=== PATIENT | female | born 1955 | race Caucasian/White ===

== ENCOUNTER → 2019-04-23 09:07 | Outpatient (CLI) | payer OTHER, SELFPAY ==
[2019-04-23 10:29] LABS: Alanine Aminotransferase 30 IU/L (<35); Albumin 4.1 g/dL (3.5-5.0); Albumin Globulin Ratio 1.3 (1.0-2.8); Alkaline Phosphatase 80 U/L (38-126); Aspartate Aminotransferase 28 IU/L (14-36); BUN Creatinine Ratio 38.6 (6-22); Bilirubin Total 0.9 mg/dL (0.2-1.3); Blood Urea Nitrogen 27 mg/dL (7-17); Calcium 9.5 mg/dL (8.4-10.2); Carbon Dioxide 33 mmol/L (22-32); Chloride 98 mmol/L (98-107); Cholesterol 146 mg/dL (140-199); Estimated Glomerular Filt Rate > 60.0 mL/min (>60); Globulin 3.1 g/dL (1.7-4.1); Glucose 102 mg/dL (80-110); HDL Cholesterol 40 mg/dL (40-60); HEMOLYSIS < 15 (0-50); LDL Cholesterol Calculated 93 mg/dL (<100); Potassium 3.6 mmol/L (3.4-5.1); Sodium 139 mmol/L (137-145); Total Protein 7.2 g/dL (6.3-8.2); Triglycerides 63 mg/dL (35-150)
[2019-04-23 11:10] LABS: Hemoglobin A1C% w Est Avg Glu 5.6 % (4.0-6.0)
[2019-04-23 11:13] LABS: Creatinine Urine Random 109.7 mg/dL
[2019-04-23 11:17] LABS: Microalbumi Creatinin Ratio Ur 7.2 ug/mg CR (<30); Microalbumin Urine Random 0.8 mg/dL (0-1.6)
== END ==
PROVIDERS: PCP Family Medicine; Visit Provider Family Medicine
DX: E78.5 Hyperlipidemia, unspecified (principal); I10 Essential (primary) hypertension
CPT/HCPCS: 36415; 80053; 80061; 82043; 82570; 83036

== ENCOUNTER → 2019-12-26 08:52 | Outpatient (CLI) | payer MEDICARE, SELFPAY ==
[2019-12-26 09:50] LABS: Cholesterol 154 mg/dL (140-199); HDL Cholesterol 65 mg/dL (40-60); LDL Cholesterol Calculated 77 mg/dL (<100); Triglycerides 60 mg/dL (35-150)
== END ==
PROVIDERS: PCP Family Medicine; Referring Provider Family Medicine; Visit Provider Family Medicine
DX: E78.5 Hyperlipidemia, unspecified (principal)
CPT/HCPCS: 36415; 80061

== ENCOUNTER → 2020-05-26 10:56 | Outpatient (CLI) | payer MEDICARE, SELFPAY ==
[2020-05-26 12:07] LABS: Add Manual Diff / Slide Review NO; Basophils Absolute Auto 100 /uL (0-100); Basophils Percent Auto 1.1 % (0-2); Eosinophils Absolute Auto 200 /uL (0-450); Eosinophils Percent Auto 2.3 % (2-4); Hematocrit 42.8 % (36-46); Hemoglobin 14.5 g/dL (12.0-16.0); Lymphocytes Absolute Auto 1700 /uL (1100-4500); Lymphocytes Percent Auto 25.6 % (25-40); Mean Corpuscular HGB Conc 33.7 % (30-36); Mean Corpuscular Hemoglobin 29.4 PG (26-34); Mean Corpuscular Volume 87.1 fL (80-100); Monocytes Absolute Auto 600 /uL (0-900); Monocytes Percent Auto 9.3 % (3-14); Neutrophils Absolute Auto 4100 /uL (1500-7000); Neutrophils Percent Auto 61.7 % (50-75); Platelet Count 224 X10^3/uL (150-400); Red Blood Cell Count 4.92 X10^6/uL (4.0-5.2); Red Cell Distribution Width 13.4 % (11.6-14.8); White Blood Cell Count 6.6 X10^3/uL (4.5-11.0)
[2020-05-26 12:23] LABS: Alanine Aminotransferase 24 IU/L (<35); Albumin 4.2 g/dL (3.5-5.0); Albumin Globulin Ratio 1.3 (1.0-2.8); Alkaline Phosphatase 86 U/L (38-126); Aspartate Aminotransferase 27 IU/L (14-36); BUN Creatinine Ratio 36.8 (6-22); Bilirubin Total 0.7 mg/dL (0.2-1.3); Blood Urea Nitrogen 25 mg/dL (7-17); Calcium 9.4 mg/dL (8.4-10.2); Carbon Dioxide 33 mmol/L (22-32); Chloride 100 mmol/L (98-107); Estimated Glomerular Filt Rate > 60.0 mL/min (>60); Globulin 3.2 g/dL (1.7-4.1); Glucose 110 mg/dL (80-110); HEMOLYSIS < 15 (0-50); Potassium 3.6 mmol/L (3.4-5.1); Sodium 137 mmol/L (137-145); Total Protein 7.4 g/dL (6.3-8.2)
[2020-05-26 12:49] LABS: Free T3, Triiodothyronine Free 4.37 pg/mL (2.77-5.27)
[2020-05-26 12:58] LABS: Creatinine Urine Random 76.6 mg/dL
[2020-05-26 13:02] LABS: Microalbumin Urine Random < 0.6 mg/dL (0-1.6)
[2020-05-26 13:03] LABS: Thyroid Stimulating Hormone 0.896 uIU/mL (0.47-4.68)
== END ==
PROVIDERS: PCP Family Medicine; Referring Provider Family Medicine; Visit Provider Family Medicine
DX: I48.91 Unspecified atrial fibrillation (principal); I10 Essential (primary) hypertension
CPT/HCPCS: 36415; 80053; 82043; 82570; 84439; 84443; 84481; 85025

== ENCOUNTER → 2022-08-05 10:42 | Outpatient (CLI) | payer MEDICARE, SELFPAY ==
--- NOTE | 2022-08-05 10:44 | DI.US.S_ITS ---
PROCEDURE: US THYROID INDICATIONS: thyroid nodule f/u TECHNIQUE: Real-time scanning was performed of the thyroid gland, with image documentation. COMPARISON: None. FINDINGS: Right: Thyroid lobe measures 5.9 x 1.8 x 1.7 cm, and is homogeneous in echotexture. Left: Thyroid lobe measures 6.0 x 2.5 x 1.9 cm, and is homogenous in echotexture. Isthmus: 4.7 mm thick. Four largest nodules as follows: Nodule number: 1 Location: Right mid Size: 0.9 x 1.0 x 0.6 cm. Composition: Solid Echogenicity: Hypoechoic Shape: wider than tall. Margins: Irregular Echogenic foci: Punctate Total points: 9 ACR TI-RADS category: 5 Nodule number: 2 Location: Left mid/anterior Size: 2.3 x 1.6 x 1.0 Composition: Predominantly solid Echogenicity: Hypoechoic Shape: wider than tall. Margins: Smooth Echogenic foci: Non Total points: 4 ACR TI-RADS category: 4 Nodule number: 3 Location: Left inferior Size: 1.6 x 1.3 x 1.3 cm. Composition: Solid Echogenicity: Hypoechoic Shape: wider than tall. Margins: Smooth Echogenic foci: None Total points: 4 ACR TI-RADS category: 4 Nodule number: 4 Location: Left mid/posterior Size: 1.3 x 0.7 x 0.6 cm. Composition: Predominantly solid Echogenicity: Hypoechoic Shape: wider than tall. Margins: Smooth Echogenic foci: Non Total points: 4 ACR TI-RADS category: 4 IMPRESSION: Stable multiple thyroid nodules. Best practice guidelines suggest FNA of nodule 1, 2, and 3 if not previously accomplished. Follow-up schedule is as below ACR TI-RADS definitions and recommendations: TI-RADS 1 (benign): 0 points. FNA not needed. TI-RADS 2 (not suspicious): 2 points. FNA not needed. TI-RADS 3 (mildly suspicious): 3 points. * FNA if 2.5 cm or larger, follow up if 1.5 cm or larger (at 1, 3, and 5 years). TI-RADS 4 (moderately suspicious): 4-6 points. * FNA if 1.5 cm or larger, follow up if 1 cm or larger (at 1, 2, 3, and 5 years). TI-RADS 5 (highly suspicious): 7 points or more. * FNA if 1 cm or larger, follow up if 0.5 cm or larger (every year for 5 years). Approved by: Jack Sun M.D. on 08/05/2022 at 17:00
[2022-08-05 12:46] LABS: Alanine Aminotransferase 31 IU/L (<35); Albumin 4.1 g/dL (3.5-5.0); Albumin Globulin Ratio 1.4 (1.0-2.8); Alkaline Phosphatase 92 U/L (38-126); Aspartate Aminotransferase 27 IU/L (14-36); BUN Creatinine Ratio 20.9 (6-22); Bilirubin Total 1.1 mg/dL (0.2-1.3); Blood Urea Nitrogen 18 mg/dL (7-17); Calcium 9.3 mg/dL (8.4-10.2); Carbon Dioxide 30 mmol/L (22-32); Chloride 100 mmol/L (98-107); Cholesterol 191 mg/dL (140-199); Estimated Glomerular Filt Rate > 60 mL/min (>60); Glucose 97 mg/dL (80-110); HEMOLYSIS < 15 (0-50); Potassium 3.9 mmol/L (3.4-5.1); Sodium 138 mmol/L (137-145); Total Protein 7.1 g/dL (6.3-8.2); Triglycerides 137 mg/dL (35-150)
[2022-08-05 12:52] LABS: HDL Cholesterol 58 mg/dL (40-60); LDL Cholesterol Calculated 106 mg/dL (<100)
[2022-08-05 15:09] LABS: Creatinine Urine Random 139.6 mg/dL
[2022-08-05 15:10] LABS: Microalbumin Urine Random 16.2 mg/dL (0-1.6)
[2022-08-05 21:46] LABS: Free T4, Direct Thyroxine 2.06 ng/dL (0.78-2.19)
[2022-08-06 05:14] LABS: Labcorp Hemoglobin (Hb) A1c 6.1 % (4.8-5.6)
[2022-08-06 16:57] LABS: Fecal Immunochemical Test Negative (Negative)
[2022-08-11 13:31] LABS: Appearance Urine UA CLEAR; Bilirubin Urine UA NEGATIVE (NEGATIVE); Color Urine UA YELLOW; Glucose Urine UA NEGATIVE (Negative); Ketones Urine UA NEGATIVE (NEGATIVE); Leukocyte Esterase Urine UA TRACE (NEGATIVE); Nitrite Urine UA NEGATIVE (Negative); Occult Blood Urine UA NEGATIVE (Negative); Protein Urine UA NEGATIVE (Negative); Specific Gravity Urine UA 1.015 (1.000-1.035); Urobilinogen Urine UA 0.2 E.U./dL (0.2)
[2022-08-11 14:08] LABS: pH Urine UA 6.5 (4.5-8.0)
[2022-08-11 14:09] LABS: Bacteria Urine None Seen; Culture Indicated Urine Specimen Cultured; RBC Urine None Seen (0-5/HPF); Squamous Epithelial Cell Urine None Seen (0-5/HPF); WBC Urine None Seen (0-5/HPF)
== END ==
PROVIDERS: Physician Assistant; PCP Family Medicine; Referring Provider Family Medicine; Visit Provider Family Medicine
DX: I10 Essential (primary) hypertension; E04.2 Nontoxic multinodular goiter; Z12.11 Encounter for screening for malignant neoplasm of colon; R73.03 Prediabetes
CPT/HCPCS: 36415; 76536; 80053; 80061; 81001; 82043; 82274; 82570; 83036; 84439; 84443; 87086

== ENCOUNTER → 2022-08-23 06:39 | Outpatient (CLI) | payer MEDICARE, SELFPAY ==
--- NOTE | 2022-08-23 06:41 | DI.US.S_ITS ---
PROCEDURE: US ABDOMEN COMPLETE INDICATIONS: LOWER ABDOMINAL PAIN/PRESSURE RADIATES TO LOW BACK TECHNIQUE: Real-time scanning was performed of the abdominal and retroperitoneal organs, with image documentation. COMPARISON: None. FINDINGS: Liver: Liver is normal in size and homogeneous in echotexture. Gallbladder: Unremarkable Biliary ducts: Intrahepatic bile ducts are non-dilated. Extrahepatic bile duct caliber measures 4.3 mm. Normal is 6-7 mm or less in diameter, or 10 mm or less post-cholecystectomy. Pancreas: Not visualized due to overlying bowel gas. Spleen: Spleen is normal in size and homogeneous in echotexture. Kidneys: Kidneys are normal in size and echotexture. Right kidney measures 12.4 cm long; left kidney measures 11.3 cm long. Mild left-sided pelvocaliectasis. Left-sided stone measuring 1.3 cm. Aorta: Visualized aorta is normal in caliber at less than 3 cm. Iliacs: Proximal common iliac arteries are normal in caliber at less than 2.5 cm. IVC: Intrahepatic inferior vena cava is patent. Miscellaneous: No free abdominal fluid. IMPRESSION: Mild left-sided pelvocaliectasis/hydronephrosis, with a nonobstructing left-sided 1.3 cm stone present. Distal obstructing stone not entirely excluded based on this appearance. Consider CT. Dictated by: Tutu Arechiga M.D. on 08/23/2022 at 8:10 Approved by: Tutu Arechiga M.D. on 08/23/2022 at 8:12
--- NOTE | 2022-08-23 06:41 | DI.US.S_ITS ---
PROCEDURE: US PELVIC COMPLETE INDICATIONS: LOWER ABDOMINAL PAIN/PRESSURE RADIATES TO LOWER BACK TECHNIQUE: Real-time scanning was performed of the pelvic organs, with image documentation. Additional endovaginal scanning was necessary due to incomplete visualization of the adnexal and endometrial structures by transabdominal scanning. COMPARISON: None. FINDINGS: Uterus: Uterus is retroverted and normal in size at 4.9 x 2.7 x .3 cm. The myometrium is homogeneous. The endometrium measures 7 mm combined thickness. Ovaries: Ovaries not visualized due to overlying bowel gas. Other: No pathologic free abdominal or pelvic fluid. IMPRESSION: Mildly heterogeneous uterus without discrete mass. Endometrial stripe measures 7 mm. This is within normal limits in a postmenopausal female without bleeding, but would be abnormal in the setting of a postmenopausal female with bleeding. We strive to produce accurate, complete, and clear reports of imaging services. To assist us in improving patient care, this report was composed using standard report templates and voice recognition software. Therefore, it may contain abnormal punctuation, insertions and/or omissions. Occasional wrong-word or sound-alike substitutions may occur. Though we review the report and make efforts to correct it, we do recommend that the report be read carefully in proper context to recognize any text inaccuracies. Dictated by: Tutu Arechiga M.D. on 08/23/2022 at 8:03 Approved by: Tutu Arechiga M.D. on 08/23/2022 at 8:06
== END ==
PROVIDERS: PCP Family Medicine; Referring Provider Physician Assistant; Visit Provider Physician Assistant
DX: R10.30 Lower abdominal pain, unspecified (principal)
CPT/HCPCS: 76700; 76830; 76856

== ENCOUNTER → 2022-08-27 09:53 | Outpatient (CLI) | payer MEDICARE, SELFPAY ==
--- NOTE | 2022-08-27 09:54 | DI.CT.S_ITS ---
PROCEDURE: CT KIDNEY URETER BLADDER (KUB) INDICATIONS: Left side renal stone seen on US TECHNIQUE: Axial sections were acquired from the lung bases to the pubic symphysis. Coronal and sagittal reformats were performed. For radiation dose reduction, the following was used: automated exposure control, adjustment of mA and/or kV according to patient size. COMPARISON: [facility], US, US ABDOMEN COMPLETE, 08/23/2022, 7:15. FINDINGS: Lung bases: No pleural effusion. URINARY: Non-obstructing stones are present within both kidneys. Stone burden is greater in the left kidney than the right, approximately 1-2 right-sided stones, and at least 4 left-sided stones. Right-sided stones are small in the region of 2-4 millimeters, largest left-sided stone measures 8-9 millimeters, internal density 686 Hounsfield units. No hydroureteronephrosis or ureteral stone bilaterally. Small cortical cyst left kidney. No bladder stones visualized. ABDOMEN: Liver: Unremarkable. Gallbladder: Unremarkable. Biliary ducts: Unremarkable. Pancreas: Unremarkable. Spleen: Unremarkable. Adrenal Glands: Unremarkable. Stomach and Bowel: No bowel obstruction. Small hiatal hernia. Peritoneum: No abnormal intraperitoneal fluid. No free air. Abdominal Nodes: No enlarged retroperitoneal or mesenteric lymph nodes. Vessels: Aorta and inferior vena cava are normal in size. PELVIS: Pelvic Organs: Unremarkable. Pelvic Nodes: Unremarkable. Bones: Multilevel degenerative change of the visualized spine. IMPRESSION: 1. Nonobstructing renal stones present bilaterally. No hydroureteronephrosis or ureteral stone demonstrated. 2. Small hiatal hernia. Dictated by: Kevin Adams M.D. on 08/27/2022 at 12:50 Approved by: Kevin Adams M.D. on 08/27/2022 at 13:05
== END ==
PROVIDERS: PCP Family Medicine; Referring Provider Physician Assistant; Visit Provider Physician Assistant
DX: N20.0 Calculus of kidney (principal); K44.9 Diaphragmatic hernia without obstruction or gangrene
CPT/HCPCS: 74176

== ENCOUNTER → 2022-11-19 09:37 | Outpatient (CLI) | payer MEDICARE, SELFPAY ==
[2022-11-19 10:32] LABS: Hemoglobin A1C% w Est Avg Glu 5.8 % (4.0-6.0)
[2022-11-19 11:07] LABS: TSH w/ Reflex to FT4 0.02 uIU/mL (0.47-4.68)
[2022-11-19 11:32] LABS: Free T4, Direct Thyroxine 1.81 ng/dL (0.78-2.19)
== END ==
PROVIDERS: PCP Family Medicine; Referring Provider Physician Assistant; Visit Provider Physician Assistant
DX: R73.03 Prediabetes (principal); R79.89 Other specified abnormal findings of blood chemistry
CPT/HCPCS: 36415; 83036; 84439; 84443

== ENCOUNTER → 2022-11-30 11:37 | Outpatient (CLI) | payer MEDICARE, SELFPAY ==
[2022-11-30 13:30] LABS: TSH w/ Reflex to FT4 0.98 uIU/mL (0.47-4.68)
== END ==
PROVIDERS: PCP Family Medicine; Referring Provider Family Medicine; Visit Provider Family Medicine
DX: E04.1 Nontoxic single thyroid nodule (principal); R79.89 Other specified abnormal findings of blood chemistry
CPT/HCPCS: 36415; 84443

== ENCOUNTER → 2023-02-07 15:28 | Outpatient (CLI) | payer MEDICARE, SELFPAY | PROVIDERS: PCP Family Medicine; Visit Provider Nurse Practitioner Family | DX: R30.0 Dysuria (principal) | CPT/HCPCS: 87077; 87086; 87186 ==

== ENCOUNTER → 2023-07-08 09:18 | Outpatient (CLI) | payer MEDICARE, SELFPAY ==
[2023-07-08 10:21] LABS: Hemoglobin A1C% w Est Avg Glu 6.1 % (4.0-6.0)
[2023-07-08 10:36] LABS: Alanine Aminotransferase 22 IU/L (<35); Albumin 3.9 g/dL (3.5-5.0); Albumin Globulin Ratio 1.3 (1.0-2.8); Alkaline Phosphatase 90 U/L (38-126); Aspartate Aminotransferase 23 IU/L (14-36); BUN Creatinine Ratio 23.3 (6-22); Bilirubin Total 0.8 mg/dL (0.2-1.3); Blood Urea Nitrogen 17 mg/dL (7-17); Calcium 9.2 mg/dL (8.4-10.2); Carbon Dioxide 33 mmol/L (22-32); Chloride 102 mmol/L (98-107); Cholesterol 179 mg/dL (140-199); Estimated Glomerular Filt Rate > 60 mL/min (>60); Glucose 108 mg/dL (80-110); HDL Cholesterol 53 mg/dL (40-60); HEMOLYSIS < 15 (0-50); LDL Cholesterol Calculated 101 mg/dL (<100); Potassium 3.9 mmol/L (3.4-5.1); Sodium 137 mmol/L (137-145); Total Protein 6.9 g/dL (6.3-8.2); Triglycerides 126 mg/dL (35-150)
[2023-07-08 11:14] LABS: Microalbumin Urine Random 9.5 mg/dL (0-1.6)
== END ==
PROVIDERS: PCP Family Medicine; Referring Provider Family Medicine; Visit Provider Family Medicine
DX: R73.03 Prediabetes (principal); I10 Essential (primary) hypertension
CPT/HCPCS: 36415; 80053; 80061; 82043; 82570; 83036

== ENCOUNTER → 2023-07-28 10:13 | Outpatient (CLI) | payer MEDICARE, SELFPAY ==
--- NOTE | 2023-07-28 10:14 | DI.US.S_ITS ---
PROCEDURE: US THYROID INDICATIONS: FOLLOW-UP NODULES TECHNIQUE: Real-time scanning was performed of the thyroid gland, with image documentation. COMPARISON: [facility], US, US THYROID, 08/05/2022, 11:33. FINDINGS: Thyroid: Right lobe measures 6 x 1.5 x 1.6 cm. Left lobe measures 5.3 x 2.2 x 2.1 cm. Isthmus is 0.4 cm thick. Echotexture is homogeneous. Nodule number: 1 Location: Right mid Size: 1 x 0.6 x 1 cm, previously 0.9 x 1 x 0.6 cm. Composition: Solid Echogenicity: Isoechoic Shape: wider than tall. Margins: Ill-defined Echogenic foci: Punctate Total points: 9 ACR TI-RADS category: 5 Nodule number: 2 Location: Right superior Size: 0.7 x 0.4 x 0.5 cm, previously 0.5 x 0.6 x 0.4 cm. Composition: Predominately solid Echogenicity: Hypoechoic Shape: wider than tall. Margins: Smooth Echogenic foci: None Total points: 4 ACR TI-RADS category: 4 Nodule number: 3 (previously nodule 2) Location: Left mid/anterior Size: 2.2 x 1.5 x 1.7 5 cm, previously 2.3 x 1.6 x 1 cm. Composition: Solid Echogenicity: Hypoechoic Shape: wider than tall. Margins: Smooth Echogenic foci: None Total points: 4 ACR TI-RADS category: 4 Nodule number: 4 (previously nodule 3) Location: Left inferior Size: 1.5 x 1.2 x 1.5 cm, previously 1.6 x 1.3 x 1.3 cm. Composition: Solid Echogenicity: Isoechoic Shape: wider than tall. Margins: Smooth Echogenic foci: None Total points: 4 ACR TI-RADS category: 4 Nodule number: 5 (previously nodule 4) Location: Left mid posterior Size: 1.4 x 0.5 x 0.5 cm, previously 1.3 x 0.7 x 0.6 cm. Composition: Solid Echogenicity: Hypoechoic Shape: wider than tall. Margins: Smooth Echogenic foci: None Total points: 4 ACR TI-RADS category: 4 IMPRESSION: Multiple thyroid nodules are relatively stable in size and appearance. Recommend FNA of nodule 1 and 4 if this has not done so previously. Otherwise, recommend continued surveillance per guidelines below. Please note that nodule 2 was not described in the previous report from August 10, 2022 and has resulted in the change in the numbering. ACR TI-RADS definitions and recommendations: TI-RADS 1 (benign): 0 points. FNA not needed. TI-RADS 2 (not suspicious): 2 points. FNA not needed. TI-RADS 3 (mildly suspicious): 3 points. * FNA if 2.5 cm or larger, follow up if 1.5 cm or larger (at 1, 3, and 5 years). TI-RADS 4 (moderately suspicious): 4-6 points. * FNA if 1.5 cm or larger, follow up if 1 cm or larger (at 1, 2, 3, and 5 years). TI-RADS 5 (highly suspicious): 7 points or more. * FNA if 1 cm or larger, follow up if 0.5 cm or larger (every year for 5 years). Dictated by: Anthony Garcia M.D. on 07/28/2023 at 16:34 Approved by: Anthony Garcia M.D. on 07/28/2023 at 16:45
== END ==
PROVIDERS: PCP Family Medicine; Referring Provider Family Medicine; Visit Provider Family Medicine
DX: E04.2 Nontoxic multinodular goiter (principal)
CPT/HCPCS: 76536

== ENCOUNTER → 2023-08-13 09:50 | Outpatient (CLI) | payer MEDICARE, SELFPAY ==
[2023-08-13 12:45] LABS: Free T3, Triiodothyronine Free 3.67 pg/mL (2.77-5.27); Free T4, Direct Thyroxine 1.46 ng/dL (0.78-2.19)
[2023-08-13 13:00] LABS: Thyroid Stimulating Hormone 0.967 uIU/mL (0.47-4.68)
[2023-08-15 16:38] LABS: Hep C Virus Ab w/Reflex Quant NEGATIVE s/c (NEGATIVE)
== END ==
PROVIDERS: PCP Family Medicine; Referring Provider Family Medicine; Visit Provider Family Medicine
DX: E04.1 Nontoxic single thyroid nodule (principal); Z13.9 Encounter for screening, unspecified
CPT/HCPCS: 36415; 84439; 84443; 84481; 86803

== ENCOUNTER → 2023-08-16 10:55 | Outpatient (CLI) | payer MEDICARE, SELFPAY ==
[2023-08-16 11:33] LABS: Add Manual Diff / Slide Review NO; Basophils Absolute Auto 100 /uL (0-100); Basophils Percent Auto 1.1 % (0-2); Eosinophils Absolute Auto 100 /uL (0-450); Hematocrit 42.5 % (36-46); Hemoglobin 14.1 g/dL (12.0-16.0); Lymphocytes Absolute Auto 2100 /uL (1100-4500); Lymphocytes Percent Auto 29.8 % (25-40); Mean Corpuscular HGB Conc 33.2 % (30-36); Mean Corpuscular Hemoglobin 28.7 PG (26-34); Mean Corpuscular Volume 86.4 fL (80-100); Monocytes Absolute Auto 700 /uL (0-900); Neutrophils Absolute Auto 4100 /uL (1500-7000); Neutrophils Percent Auto 57.1 % (50-75); Platelet Count 259 X10^3/uL (150-400); Red Blood Cell Count 4.92 X10^6/uL (4.0-5.2); Red Cell Distribution Width 13.7 % (11.6-14.8); White Blood Cell Count 7.2 X10^3/uL (4.5-11.0)
[2023-08-16 11:44] LABS: HEMOLYSIS < 15 (0-50); Iron 110 ug/dL (37-170)
[2023-08-16 11:54] LABS: Percent Iron Saturation 30 % (15-50); Total Iron Binding Capacity 368 ug/dL (265-497); Transferrin 284 mg/dL (206-381)
== END ==
PROVIDERS: PCP Family Medicine; Referring Provider Family Medicine; Visit Provider Family Medicine
DX: R53.83 Other fatigue (principal)
CPT/HCPCS: 36415; 83540; 83550; 85025

== ENCOUNTER 2023-09-23 08:59 | Day surgery (SDC) | payer MEDICARE, SELFPAY ==
--- NOTE | 2023-09-23 | PATH_ITS ---
[facility] Accession Number: [id number] No. of containers..01 Tissue . 01 Material submitted: . colon - DESCENDING COLON POLYP . 01 Diagnosis: DESCENDING COLON POLYP: Tubular adenoma. MRV 09/28/2023 1450 Local . 01 Electronically signed: . Eran Wright MD, PhD, Pathologist NPI- [id number] . 01 Gross description: . Received in formalin with two patient identifiers and descending colon polyps, are two stephens soft tissue fragments, 1.3 to 1.6 cm in greatest dimension. Submitted in A1. ([id number]) /MRV 09/26/2023 1849 Local . 01 Pathologist provided ICD-10: D12.4 . 01 CPT . 852956 Specimen Comment: A courtesy copy of this report has been sent to [phone] Performed at: [address] [id number] MD Ameya Harris MD Phone: [phone]
[2023-09-23 09:40] VITALS: BP 143/85; PULSE 107; RESP 16; TEMP 35.9; O2SAT 95
[2023-09-23] MEDS: LACTATED RINGERS 1,000 ML 42 ML IV (09:53)
--- NOTE | 2023-09-23 10:25 | PM.HP.1 ---
History of Present Illness History of Present Illness Date Patient Seen: 09/23/23 Time Patient Seen: 10:25 Chief complaint: SDC Narrative: Last scope was 11years ago. Since then she has had a negative Cologard test. Here for screening, no symptoms. 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 Obesity (BMI 30-39.9) Anxiety Atrial fibrillation Insomnia, unspecified (~2012) Snoring (~2012) DARIEL (obstructive sleep apnea) (~2017) Cataract Hypertension (2008) Kidney stones (2013) Chicken pox Acne Rosacea Osteopenia Wrist fracture, right (1999) Genital warts Surgical History S/P ablation of atrial fibrillation (~11/18/20) Anesthesia History of colonoscopy (05/15/10) History of open reduction and internal fixation (ORIF) procedure (1999) History of ovarian cystectomy (1985) History of cataract removal with insertion of prosthetic lens (11/2015) Status post delivery History of lithotripsy (2013) History of tonsillectomy (~1974) Family History Brother Age: 66 Hypertension High cholesterol Gout Herpes simplex of eye Father Prostate cancer Heart disease Hypertension High cholesterol Stroke Grandfather Heart disease Hypertension Heart attack Grandmother Cervical cancer Ovarian cancer Mother Age: 93 Heart disease Hypertension High cholesterol Atrial fibrillation Macular degeneration Grandmother Heart disease Stroke Grandfather Heart disease Social History marital status: details: regina Belcher, lives in [place] number of children: 2 household members: spouse lives independently: Yes caregiver/support person: No housing: house occupational status: previously employed Previous occupational history: retired from [employer]; worked with [employer] Hill[employer] other: has history of duodenal Ca Smoking Status: Never smoker alcohol intake: current substance use type: does not use Meds Home Medications and Allergies Home Medications Medication Instructions Recorded Confirmed Type cholecalciferol (vitamin D3) 25 1,000 unit PO QDAY ##0 07/11/17 09/23/23 History mcg (1,000 unit) tablet (Vitamin D3) [employer] CPAP #1 ea 06/06/18 08/16/23 History ketoconazole 2 % topical cream 1 applic topical BID #60 grams 06/10/20 09/23/23 Rx metoprolol succinate 25 mg See Rx Instructions .Route 04/29/21 09/23/23 Rx tablet,extended release 24 hr .COMPLEX #45 tabs methenamine hippurate 1 gram tablet 1 g PO BID 06/22/23 09/23/23 History methenamine hippurate 1 gram tablet 1 g PO BID UTI 07/26/23 08/16/23 History atorvastatin 20 mg tablet 20 mg PO QPM #90 tabs 08/16/23 09/23/23 Rx rivaroxaban 20 mg tablet (Xarelto) See Rx Instructions .Route 08/16/23 09/23/23 Rx .COMPLEX #90 tabs hydrochlorothiazide 50 mg tablet 50 mg PO DAILY 09/23/23 09/23/23 History metformin 500 mg tablet,extended 500 mg PO QPM 09/23/23 09/23/23 History release 24 hr Allergies Allergy/AdvReac Type Severity Reaction Status Date / Time Penicillins [PENICILLINS] Allergy Unknown RASH Verified 09/23/23 09:33 tetracycline [TETRACYCLINE] Allergy Unknown RASH Verified 09/23/23 09:33 Review of Systems Review of Systems ROS: Yes All systems reviewed with the patient and are negative except as otherwise documented Exam Vital Signs (past 8 hours): - 09/23/23 09:40 Temperature 96.6 F L Pulse Rate 107 H Respiratory Rate 16 Blood Pressure 143/85 H Pulse Oximetry 95 Oxygen Delivery Method Room Air Oxygen Flow Rate 0 Oxygen Delivery Method Room Air Oxygen Flow Rate 0 Const General: cooperative and comfortable Nutritional Appearance: obese HENMT Head: normocephalic and atraumatic Eyes Sclera: sclerae normal Neck Neck: trachea midline Resp Effort & Inspection: normal respiratory effort and able to speak in complete sentences Cardio Rate: tachycardic Rhythm: abnormal rhythm GI Inspection: non-distended Palpation: soft and No tender Skin General: atrophy Neuro General: patient alert, patient awake and patient oriented x3 Cognition: normal cognition Psych Appearance: grossly normal Mental Status: mental status grossly normal Judgment: judgment good Assessment & Plan Assessment & Plan narrative: colon cancer screening with colonoscopy and anesthesia Time Spent With Patient Time with patient: less than 30 minutes
--- NOTE | 2023-09-23 11:04 | PM.OP.COLON ---
Operative Date/Time/Diagnoses Date of procedure: 09/23/23 Time of procedure: 11:04 Pre-op diagnosis: Colon cancer screening Post-op diagnosis: same Procedure & Clinicians Study performed: Colonoscopy with cold snare polypectomy Same procedure as scheduled: Yes Indications: Colon cancer screening Surgeon: Tiff Andrews Procedure Notes Procedure in detail: Preop diagnosis: Colon cancer screening Postop diagnosis: Same Operative procedure: Colonoscopy with cold snare polypectomy using anesthesia Surgeon: Cheryl Andrews MD Findings: Sessile polyp 4 mm in the ascending colon. No significant diverticulosis Procedure: Patient placed in lateral position. Rectal exam performed showing normal tone no masses. Scope was inserted into the rectum and advanced to ileocecal valve with minimal difficulty. Insufflation extraction scope and the above findings. Retroflex was included in the rectum Impression: Single ascending colon polyp proximally 4 mm and sessile. No significant diverticulosis. Plan: Repeat colonoscopy in 5 years unless otherwise indicated by change in clinical condition Findings: polyp(s) Specimen(s): other (Ascending colon polyp, 4 mm) Complications: none Post-procedure Recommendations: Colonoscopy in 5 years Follow up: as needed Disposition: PACU
[2023-09-23 11:06] VITALS: BP 98/64; PULSE 86; RESP 15; TEMP 36.2; O2SAT 97
[2023-09-23 11:09] VITALS: BP 104/64; PULSE 84; RESP 12; O2SAT 96
[2023-09-23 11:14] VITALS: BP 104/75; PULSE 78; RESP 16; TEMP 36.3; O2SAT 97
== END 2023-09-23 11:20 | disposition home or self-care (01) ==
PROVIDERS: PCP Family Medicine; Referring Provider Surgery; Visit Provider Surgery
PROC: 0DJD8ZZ Inspection of Lower Intestinal Tract, Via Natural or Artificial Opening Endoscopic (ICD-10-PCS; CPT 45378; principal; 2023-09-23 09:45)
DX: Z12.11 Encounter for screening for malignant neoplasm of colon (principal); D12.4 Benign neoplasm of descending colon
CPT/HCPCS: 45385; J2704

== ENCOUNTER → 2024-07-19 09:14 | Outpatient (CLI) | payer MEDICARE, SELFPAY ==
[2024-07-19 10:12] LABS: Hemoglobin A1C% w Est Avg Glu 5.9 % (4.0-6.0)
[2024-07-19 10:21] LABS: Creatinine Urine Random 157.95 mg/dL
[2024-07-19 10:29] LABS: Microalbumin Urine Random 1.2 mg/dL (0-1.6)
[2024-07-19 10:32] LABS: Alanine Aminotransferase 26 IU/L (<35); Albumin 4.3 g/dL (3.5-5.0); Albumin Globulin Ratio 1.5 (1.0-2.8); Alkaline Phosphatase 91 U/L (38-126); Aspartate Aminotransferase 26 IU/L (14-36); Bilirubin Total 1.1 mg/dL (0.2-1.3); Blood Urea Nitrogen 20 mg/dL (7-17); Calcium 9.5 mg/dL (8.4-10.2); Carbon Dioxide 24 mmol/L (22-32); Chloride 104 mmol/L (98-107); Cholesterol 176 mg/dL (140-199); Estimated Glomerular Filt Rate > 60 mL/min (>60); Globulin 2.8 g/dL (1.7-4.1); Glucose 110 mg/dL (80-110); HDL Cholesterol 51 mg/dL (40-60); HEMOLYSIS < 15 (0-50); LDL Cholesterol Calculated 96 mg/dL (<100); Potassium 3.7 mmol/L (3.4-5.1); Sodium 137 mmol/L (137-145); Total Protein 7.1 g/dL (6.3-8.2); Triglycerides 147 mg/dL (35-150)
[2024-07-19 10:59] LABS: TSH w/ Reflex to FT4 1.01 uIU/mL (0.47-4.68)
== END ==
PROVIDERS: PCP Family Medicine; Referring Provider Family Medicine; Visit Provider Family Medicine
DX: R79.89 Other specified abnormal findings of blood chemistry (principal); R73.03 Prediabetes; E66.9 Obesity, unspecified; I10 Essential (primary) hypertension; E04.1 Nontoxic single thyroid nodule
CPT/HCPCS: 36415; 80053; 80061; 82043; 82570; 83036; 84443

== ENCOUNTER → 2024-07-24 11:54 | Outpatient (CLI) | payer MEDICARE, SELFPAY ==
--- NOTE | 2024-07-24 11:55 | DI.US.S_ITS ---
PROCEDURE: US THYROID INDICATIONS: NODULES TECHNIQUE: Real-time scanning was performed of the thyroid gland, with image documentation. COMPARISON: , US, US THYROID, 07/28/2023, 10:42. , US, US THYROID, 08/05/2022, 11:33. FINDINGS: Thyroid: Right lobe measures 6.0 x 1.5 x 1.6 cm. Left lobe measures 5.3 x 2.2 x 2.2 cm. Isthmus is 0.3 cm thick. Echotexture is heterogenous with multiple nodules. The 4 most suspicious nodules are identified: Nodule number: 1 Location: Right midpole Size: 1.0 x 0.6 x 1.0 cm (unchanged). Composition: Solid Echogenicity: Isoechoic Shape: wider than tall. Margins: Ill-defined Echogenic foci: None Total points: 3 ACR TI-RADS category: TR 3 Nodule number: 2 Location: Right superior Size: 0.7 x 0.4 x 0.5 cm (unchanged). Composition: Solid Echogenicity: Hypoechoic Shape: wider than tall. Margins: Smooth Echogenic foci: None Total points: 4 ACR TI-RADS category: TR 4 Nodule number: 3 Location: Left mid anterior pole Size: 2.2 x 1.5 x 1.7 cm (unchanged). Composition: Solid Echogenicity: Isoechoic Shape: wider than tall. Margins: Smooth Echogenic foci: None Total points: 3 ACR TI-RADS category: TR 3 Nodule number: 4 Location: Left mid posterior pole Size: 1.4 x 0.5 x 0.5 cm (unchanged). Composition: Solid Echogenicity: Isoechoic Shape: wider than tall. Margins: Smooth Echogenic foci: None Total points: 3 ACR TI-RADS category: TR 3 IMPRESSION: 1. No significant change in thyroid nodules. Follow-up thyroid ultrasound recommended for the left mid anterior pole 2.2 cm nodule in 1, 3, and 5 years from the time of the original thyroid ultrasound examination dated 11/21/2020. 2. Multinodular goiter. ACR TI-RADS definitions and recommendations: TI-RADS 1 (benign): 0 points. FNA not needed. TI-RADS 2 (not suspicious): 2 points. FNA not needed. TI-RADS 3: 3 points. * FNA if 2.5 cm or larger, follow up if 1.5 cm or larger (at 1, 3, and 5 years). TI-RADS 4: 4-6 points. * FNA if 1.5 cm or larger, follow up if 1 cm or larger (at 1, 2, 3, and 5 years). TI-RADS 5: 7 points or more. * FNA if 1 cm or larger, follow up if 0.5 cm or larger (every year for 5 years). Dictated by: Art Barton M.D. on 07/24/2024 at 15:14 Approved by: Art Barton M.D. on 07/24/2024 at 15:21
== END ==
PROVIDERS: PCP Family Medicine; Referring Provider Family Medicine; Visit Provider Family Medicine
DX: E04.2 Nontoxic multinodular goiter (principal); R79.89 Other specified abnormal findings of blood chemistry
CPT/HCPCS: 76536

== ENCOUNTER → 2024-08-22 12:44 | Outpatient (CLI) | payer MEDICARE, SELFPAY ==
--- NOTE | 2024-08-22 12:45 | DI.RAD.S_ITS ---
PROCEDURE: XR DEXA AXIAL SKELETON INDICATIONS: postmenopausal female COMPARISON: None. FINDINGS: Lumbar Spine: Bone mineral density 0.93 g/cm2, T score -1.1,. Left Femoral Neck: Bone mineral density 0.82 g/cm2, T score -0.3. Left Hip: Bone mineral density 1.0 g/cm2, T score 0.6,. Fracture Risk Calculation (when applicable): 10-year fracture risk of a major osteoporotic fracture 6.7 percent and of a hip fracture 0.4 percent. (T score greater or equal to -1.0 to: NORMAL) (T score from -1.1 to -2.4: OSTEOPENIA) (T score less than or equal to -2.5: OSTEOPOROSIS) IMPRESSION: Osteopenia with fracture risk calculations as above Follow-up guidelines as follows: Osteoporosis: Consider a repeat DEXA and Vertebral Fracture Assessment (VFA) exam in 2 years or sooner if medically necessary, to reassess this patient's status. Osteopenia: Consider a repeat DEXA in 2-3 years to reassess this patient's status, or if there is a new clinical indication. Normal: Consider a repeat DEXA in 5 years or sooner, or if there is a new clinical indication. All treatment decisions require clinical judgment and consideration of individual patient factors, including patient preferences, comorbidities, previous drug use, risk factors not captured in the FRAX model (e.g., frailty, falls, vitamin D deficiency, increased bone turnover, interval significant decline in bone density ) and possible under- or over-estimation of fracture risk by FRAX. In addition, the NOF Guide recommends that FDA-approved medical therapies be considered in postmenopausal women and men age >= 50 years with a: * Hip or vertebral (clinical or morphometric) fracture * T-score of <=-2.5 at the spine or hip * Ten-year fracture probability by FRAX of >= 3% for hip fracture or >=20% for major osteoporotic fracture. Dictated by: Chema Monahan M.D. on 08/22/2024 at 16:02 Approved by: Chema Monahan M.D. on 08/22/2024 at 16:03
== END ==
PROVIDERS: PCP Family Medicine; Referring Provider Family Medicine; Visit Provider Family Medicine
DX: Z78.0 Asymptomatic menopausal state (principal); M85.88 Other specified disorders of bone density and structure, other site
CPT/HCPCS: 77080